=== PATIENT | male | born 1960 | race Caucasian/White ===

== ENCOUNTER 2022-09-19 16:55 | Outpatient (CLI) | payer BC, SELFPAY ==
--- NOTE | ~2022-09-19 | MR_ITS ---
MRI of the left knee Clinical history: Pain Technique: Coronal proton density and proton density-weighted images, sagittal proton-density and T2 fat-sat images, and axial proton-density fat-saturated images were acquired. Findings: Anterior and posterior cruciate ligaments are intact. Medial collateral ligament and the la teral collateral ligament complex are are intact. Popliteus tendon is intact. There is horizontal/oblique tear of the posterior horn of the medial meniscus. No lateral meniscal te ar seen. Focal grade 4 chondral lesion of the inferior patellar apex region. Remaining articular cartilage is well preserved throughout the knee. Bone marrow signals are unremarkable. Extensor mechanism is intact. No significant joint effusion, and no Mccoy's cyst. Impression: Horizontal/oblique tear of the posterior horn the medial meniscus. Focal grade 4 chondral lesion at the inferior patellar apex. Reviewed, dictated and finalized at [facility]. Impression: Horizontal/oblique tear of the posterior horn the medial meniscus. Focal grade 4 chondral lesion at the inferior patellar apex.
== END 2022-09-19 16:56 | disposition home or self-care (01) ==
LOC: ANHIMG 17:04
PROVIDERS: Visit Provider Orthopaedic Surgery
DX: M25.562 Pain in left knee (principal); S83.242A Other tear of medial meniscus, current injury, left knee, initial encounter; M25.862 Other specified joint disorders, left knee
CPT/HCPCS: 73721